=== PATIENT | male | born 1950 | race Two or more races ===

== ENCOUNTER 2019-03-22 08:36 | Emergency (ER) | payer OTHER ==
[~2019-03-22] VITALS: Ht 172.7 cm; Wt 70.3 kg
== END 2019-03-22 12:34 | disposition home or self-care (01) ==
LOC: ER 08:36
DX: S60.012A Contusion of left thumb without damage to nail, initial encounter (principal); W23.0XXA Caught, crushed, jammed, or pinched between moving objects, initial encounter; Y93.89 Activity, other specified; Y92.018 Other place in single-family (private) house as the place of occurrence of the external cause; Y99.8 Other external cause status

== ENCOUNTER 2023-08-11 08:40 | Emergency (ER) | payer OTHER ==
[~2023-08-11] VITALS: Ht 172.7 cm; Wt 68.0 kg
[2023-08-11] MEDS ORDERED: KETOROLAC TROMETHAMINE 30 MG VIAL IM STA (10:16)
[2023-08-11] MEDS ORDERED: DEXAMETHASONE SODIUM PHOSPHATE 4 MG/ML VIAL IM STA (10:18)
[2023-08-11] MEDS ORDERED: INDOMETHACIN50 M1 PO (10:28)
[2023-08-11] MEDS ORDERED: KETOROLAC TROMETHAMINE 30 MG VIAL ONE (10:30)
[2023-08-11] MEDS ORDERED: DEXAMETHASONE SODIUM PHOSPHATE 4 MG/ML VIAL ONE (10:30)
== END 2023-08-11 10:35 | disposition home or self-care (01) ==
LOC: ER 08:41
DX: M10.061 Idiopathic gout, right knee (principal); M06.8A Other specified rheumatoid arthritis, other specified site
CPT/HCPCS: 96372; 99282; J1100; J1885

== ENCOUNTER 2024-10-20 11:09 | Emergency (ER) | payer OTHER ==
[~2024-10-20] VITALS: Ht 172.7 cm; Wt 68.0 kg
[~2024-10-20 11:09] MED LIST: INDOMETHACIN50 M1 PO
[2024-10-20] MEDS ORDERED: CETIRIZINE HCL 5 MG/5 ML ML PO ONE (14:45)
[2024-10-20] MEDS ORDERED: METHYLPREDNISOLONE SOD SUCC 125 MG VIAL IM ONE (14:45)
[2024-10-20 15:17] LABS: BASO % 0.3 % (0.1-1.2); EOS # 0.04 (0.04-0.54); EOS % 0.6 % (0.7-7.0); LYMPH # 2.40 (1.18-3.74); LYMPH % 34.5 % (19.3-53.1); MEAN PLATELET VOLUME 8.90 fl (9.4-12.4); MONO # 0.53 (0.24-0.82); MONO % 7.6 % (4.7-12.5); NEUT # 3.95 (1.56-6.13); NEUT % 56.9 % (34.0-71.1); RED CELL DISTRIBUTION WIDTH 13.2 % (11.6-14.4)
[2024-10-20] MEDS ORDERED: ZYRTEC10 MG PO (15:54)
[2024-10-20] MEDS ORDERED: BENADRYL ALLERG50 MG PO (15:54)
[2024-10-20] MEDS ORDERED: PEPCID AC20 MG PO (15:54)
== END 2024-10-20 17:05 | disposition home or self-care (01) ==
LOC: ER 11:09
PROVIDERS: General Practice
DX: L50.9 Urticaria, unspecified (principal); T78.40XA Allergy, unspecified, initial encounter; R21 Rash and other nonspecific skin eruption